=== PATIENT | male | born 1935 | race Caucasian/White ===

== ENCOUNTER 2021-08-14 16:06 | Inpatient (IN) ==
[2021-08-14] MEDS: Furosemide 20 MG TABLET PO SCH (21:30)
[2021-08-14] MEDS: *HR* Amiodarone 200 MG TABLET PO SCH (21:30)
[2021-08-15 05:15] LABS: Basophils % 0.3 %; Eosinophils # 0.1 K/mcL (0.0-0.6); Eosinophils % 0.7 %; Hematocrit 31.4 % (37.5-50.1); Hemoglobin 9.3 g/dL (12.9-16.9); Immature Granulocytes % 2.9 % (0-4); Lymphocytes # 0.5 K/mcL (0.6-4.6); Lymphocytes % 3.9 %; Mean Corpuscular HGB Conc 29.6 g/dL (31.6-35.5); Mean Corpuscular Hemoglobin 24.2 pg (28.0-33.3); Mean Corpuscular Volume 81.8 fL (83.0-100.0); Mean Platelet Volume 10.5 fL (9.4-12.4); Monocytes # 1.6 K/mcL (0.0-1.3); Monocytes % 11.4 %; Platelet Count 219 K/mcL (140-400); Red Blood Count 3.84 M/mcL (4.19-5.50); Red Cell Distribution Width 20.7 % (11.5-14.5); Segmented Neutrophils % 80.8 %; White Blood Count 13.6 K/mcL (4.3-11.1)
[2021-08-15 05:26] LABS: Calcium 8.4 mg/dL (8.6-10.3); Potassium 3.5 mEq/L (3.5-5.1)
[2021-08-15] MEDS: *HR* Enoxaparin 40 MG/0.4 ML SYRINGE SQ SCH (05:33)
[2021-08-15] MEDS: Furosemide 20 MG TABLET PO SCH ×2 (09:21→16:59)
[2021-08-15] MEDS: *HR* Amiodarone 200 MG TABLET PO SCH ×2 (09:21→21:08)
[2021-08-15] MEDS: Aspirin Enteric Coated 81 MG Tablet PO SCH (09:21)
[2021-08-15] MEDS: Multivit/Ca/Min/Fe/FA 1 TAB TABLET PO SCH (09:22)
[2021-08-16] MEDS: *HR* Enoxaparin 40 MG/0.4 ML SYRINGE SQ SCH (05:55)
[2021-08-16] MEDS: *HR* Amiodarone 200 MG TABLET PO SCH ×2 (09:05→20:22)
[2021-08-16] MEDS: Aspirin Enteric Coated 81 MG Tablet PO SCH (09:05)
[2021-08-16] MEDS: Multivit/Ca/Min/Fe/FA 1 TAB TABLET PO SCH (09:05)
[2021-08-16] MEDS: Furosemide 20 MG TABLET PO SCH ×2 (09:05→16:19)
[2021-08-16] MEDS: Acetaminophen 325 MG TABLET PO PRN ×2 (09:05→16:19)
[2021-08-17] MEDS: *HR* Enoxaparin 40 MG/0.4 ML SYRINGE SQ SCH (04:20)
[2021-08-17 07:17] LABS: Hematocrit 31.3 % (37.5-50.1); Hemoglobin 9.4 g/dL (12.9-16.9); Mean Corpuscular Hemoglobin 24.5 pg (28.0-33.3); Mean Corpuscular Volume 81.7 fL (83.0-100.0); Mean Platelet Volume 10.9 fL (9.4-12.4); Platelet Count 237 K/mcL (140-400); Red Blood Count 3.83 M/mcL (4.19-5.50); White Blood Count 19.2 K/mcL (4.3-11.1)
[2021-08-17 07:55] LABS: Albumin 2.6 g/dL (3.5-5.7); Bilirubin,Total 0.9 mg/dL (0.3-1.0); Calcium 8.4 mg/dL (8.6-10.3); Globulin 2.7 g/dL (2.4-3.5); Magnesium 1.9 mg/dL (1.6-2.6); Potassium 3.2 mEq/L (3.5-5.1); Total Protein 5.3 g/dL (6.4-8.9)
[2021-08-17] MEDS: Aspirin Enteric Coated 81 MG Tablet PO SCH (10:15)
[2021-08-17] MEDS: Multivit/Ca/Min/Fe/FA 1 TAB TABLET PO SCH (10:15)
[2021-08-17] MEDS: Furosemide 20 MG TABLET PO SCH (10:16)
[2021-08-17] MEDS: *HR* Amiodarone 200 MG TABLET PO SCH ×2 (10:16→19:46)
[2021-08-17] MEDS: 0.9 % Sodium Chloride 1,000 ML IVC SCH (13:12)
[2021-08-17 15:13] LABS: Bilirubin,Urine Negative (Negative); Blood,Urine Small (Negative); Clarity,Urine Clear (Clear); Color,Urine Yellow (Yellow); Glucose,Urine (UA) Normal (Normal); Ketones,Urine Negative (Negative); Leukocyte Esterase,Urine Negative (Negative); Nitrite,Urine Negative (Negative); PH,Urine 6.5 pH Units (5.0-8.0); Protein,Urine Negative (Neg-Trace); Urobilinogen,Urine Normal (Normal)
[2021-08-17 15:26] LABS: Bacteria,Urine Few per hpf (None-Few); RBC,Urine 0-3 per hpf (0-3); Squamous Epithelial Cell,Urine Few per hpf (None-Few); WBC,Urine 0-3 per hpf (0-3)
[2021-08-17] MEDS: Piperacillin/Tazobactam 3.375 GM in 0.9 % Sodium Chloride Mini Bag 100 ML IVPB SCH ×2 (16:29→23:16)
[2021-08-18] MEDS: *HR* Enoxaparin 40 MG/0.4 ML SYRINGE SQ SCH (04:06)
[2021-08-18 05:23] LABS: Basophils % 0.2 %; Eosinophils # 0.2 K/mcL (0.0-0.6); Eosinophils % 1.1 %; Hematocrit 29.9 % (37.5-50.1); Hemoglobin 9.2 g/dL (12.9-16.9); Immature Granulocytes % 1.7 % (0-4); Lymphocytes # 0.5 K/mcL (0.6-4.6); Mean Corpuscular HGB Conc 30.8 g/dL (31.6-35.5); Mean Corpuscular Volume 81.3 fL (83.0-100.0); Mean Platelet Volume 10.5 fL (9.4-12.4); Monocytes # 1.9 K/mcL (0.0-1.3); Monocytes % 11.1 %; Platelet Count 241 K/mcL (140-400); Red Blood Count 3.68 M/mcL (4.19-5.50); Red Cell Distribution Width 21.2 % (11.5-14.5); Segmented Neutrophils % 82.9 %; White Blood Count 16.8 K/mcL (4.3-11.1)
[2021-08-18 05:25] LABS: Neutrophils # 13.9 K/mcL (1.6-8.9)
[2021-08-18 05:43] LABS: Calcium 8.1 mg/dL (8.6-10.3); Potassium 3.1 mEq/L (3.5-5.1)
[2021-08-18] MEDS: Multivit/Ca/Min/Fe/FA 1 TAB TABLET PO SCH (10:06)
[2021-08-18] MEDS: Aspirin Enteric Coated 81 MG Tablet PO SCH (10:06)
[2021-08-18] MEDS: *HR* Amiodarone 200 MG TABLET PO SCH ×2 (10:06→22:44)
[2021-08-18] MEDS: Piperacillin/Tazobactam 3.375 GM in 0.9 % Sodium Chloride Mini Bag 100 ML IVPB SCH ×3 (10:07→22:45)
[2021-08-18] MEDS: 0.9 % Sodium Chloride 1,000 ML IVC SCH (10:07)
[2021-08-19] MEDS: 0.9 % Sodium Chloride 1,000 ML IVC SCH ×2 (01:49→11:16)
[2021-08-19 05:01] LABS: Basophils # 0.1 K/mcL (0.0-0.2); Basophils % 0.4 %; Eosinophils # 0.3 K/mcL (0.0-0.6); Eosinophils % 2.3 %; Hematocrit 28.2 % (37.5-50.1); Hemoglobin 8.4 g/dL (12.9-16.9); Immature Granulocytes % 1.6 % (0-4); Lymphocytes # 0.6 K/mcL (0.6-4.6); Lymphocytes % 4.5 %; Mean Corpuscular HGB Conc 29.8 g/dL (31.6-35.5); Mean Corpuscular Hemoglobin 24.3 pg (28.0-33.3); Mean Corpuscular Volume 81.5 fL (83.0-100.0); Mean Platelet Volume 11.1 fL (9.4-12.4); Monocytes # 1.7 K/mcL (0.0-1.3); Monocytes % 12.8 %; Platelet Count 252 K/mcL (140-400); Red Blood Count 3.46 M/mcL (4.19-5.50); Red Cell Distribution Width 21.5 % (11.5-14.5); Segmented Neutrophils % 78.4 %; White Blood Count 13.2 K/mcL (4.3-11.1)
[2021-08-19 05:07] LABS: Neutrophils # 10.4 K/mcL (1.6-8.9)
[2021-08-19 05:16] LABS: Albumin 2.3 g/dL (3.5-5.7); Albumin/Globulin Ratio 0.9 (1.1-2.2); Bilirubin,Total 0.8 mg/dL (0.3-1.0); Calcium 7.7 mg/dL (8.6-10.3); Globulin 2.5 g/dL (2.4-3.5); Potassium 2.8 mEq/L (3.5-5.1); Total Protein 4.8 g/dL (6.4-8.9)
[2021-08-19] MEDS: *HR* Enoxaparin 40 MG/0.4 ML SYRINGE SQ SCH (05:19)
[2021-08-19] MEDS: Piperacillin/Tazobactam 3.375 GM in 0.9 % Sodium Chloride Mini Bag 100 ML IVPB SCH ×2 (09:14→16:13)
[2021-08-19] MEDS: Multivit/Ca/Min/Fe/FA 1 TAB TABLET PO SCH (09:15)
[2021-08-19] MEDS: Aspirin Enteric Coated 81 MG Tablet PO SCH (09:16)
[2021-08-19] MEDS: *HR* Amiodarone 200 MG TABLET PO SCH ×2 (09:16→19:49)
[2021-08-20] MEDS: Piperacillin/Tazobactam 3.375 GM in 0.9 % Sodium Chloride Mini Bag 100 ML IVPB SCH ×4 (00:05→23:55)
[2021-08-20] MEDS: *HR* Enoxaparin 40 MG/0.4 ML SYRINGE SQ SCH (04:16)
[2021-08-20] MEDS: Multivit/Ca/Min/Fe/FA 1 TAB TABLET PO SCH (08:22)
[2021-08-20] MEDS: Aspirin Enteric Coated 81 MG Tablet PO SCH (08:22)
[2021-08-20] MEDS: *HR* Amiodarone 200 MG TABLET PO SCH ×2 (08:22→20:33)
[2021-08-20 08:34] LABS: Alanine Aminotransferase 27 Units/L (7-52); Albumin 2.6 g/dL (3.5-5.7); Albumin/Globulin Ratio 0.9 (1.1-2.2); Alkaline Phosphatase 202 Units/L (34-104); Aspartate Amino Transferase 33 Units/L (13-39); BUN/Creatinine Ratio 26 (6-26); Bilirubin,Total 0.8 mg/dL (0.3-1.0); Blood Urea Nitrogen 34 mg/dL (8-23); Calcium 8.3 mg/dL (8.6-10.3); Carbon Dioxide 33 mEq/L (23-29); Chloride 104 mEq/L (98-107); Globulin 2.8 g/dL (2.4-3.5); Glucose 87 mg/dL (70-105); Magnesium 2.1 mg/dL (1.6-2.6); Osmolality,Calculated 303 (280-300); Potassium 3.7 mEq/L (3.5-5.1); Sodium 143 mEq/L (136-145); Total Protein 5.4 g/dL (6.4-8.9); eGFR For African Americans > 60 (> 60); eGFR For Non-African Americans 51 (> 60)
[2021-08-20 08:35] LABS: Basophils # 0.1 K/mcL (0.0-0.2); Basophils % 0.4 %; Eosinophils # 0.2 K/mcL (0.0-0.6); Eosinophils % 1.6 %; Hematocrit 30.6 % (37.5-50.1); Hemoglobin 9.1 g/dL (12.9-16.9); Immature Granulocytes % 1.8 % (0-4); Lymphocytes # 0.6 K/mcL (0.6-4.6); Lymphocytes % 5.4 %; Mean Corpuscular HGB Conc 29.7 g/dL (31.6-35.5); Mean Corpuscular Hemoglobin 24.7 pg (28.0-33.3); Mean Corpuscular Volume 83.2 fL (83.0-100.0); Mean Platelet Volume 11.1 fL (9.4-12.4); Monocytes # 1.7 K/mcL (0.0-1.3); Monocytes % 14.6 %; Neutrophils # 8.8 K/mcL (1.6-8.9); Platelet Count 280 K/mcL (140-400); Red Blood Count 3.68 M/mcL (4.19-5.50); Red Cell Distribution Width 22.1 % (11.5-14.5); Segmented Neutrophils % 76.2 %; White Blood Count 11.6 K/mcL (4.3-11.1)
[2021-08-20] MEDS: Megestrol Acetate 400 MG/10 ML UDC PO SCH (15:37)
[2021-08-20] MEDS ORDERED: *HR* Heparin 5,000 UNIT/ML VIAL SQ SCH (18:00)
[2021-08-20] MEDS: Albuterol 2.5 MG/3 ML NEBULIZER IH PRN (20:54)
[2021-08-21] MEDS: Albuterol 2.5 MG/3 ML NEBULIZER IH PRN (05:04)
[2021-08-21] MEDS: *HR* Heparin 5,000 UNIT/ML VIAL SQ SCH ×2 (05:04→16:52)
[2021-08-21 07:23] LABS: Basophils % 0.3 %; Eosinophils # 0.2 K/mcL (0.0-0.6); Eosinophils % 1.3 %; Hemoglobin 8.9 g/dL (12.9-16.9); Immature Granulocytes % 1.8 % (0-4); Lymphocytes # 0.7 K/mcL (0.6-4.6); Lymphocytes % 5.6 %; Mean Corpuscular HGB Conc 29.7 g/dL (31.6-35.5); Mean Corpuscular Hemoglobin 24.9 pg (28.0-33.3); Mean Platelet Volume 10.7 fL (9.4-12.4); Monocytes # 1.8 K/mcL (0.0-1.3); Monocytes % 14.7 %; Platelet Count 299 K/mcL (140-400); Red Blood Count 3.57 M/mcL (4.19-5.50); Red Cell Distribution Width 22.2 % (11.5-14.5); Segmented Neutrophils % 76.3 %
[2021-08-21 07:24] LABS: Neutrophils # 9.2 K/mcL (1.6-8.9)
[2021-08-21 07:33] LABS: BUN/Creatinine Ratio 27 (6-26); Blood Urea Nitrogen 33 mg/dL (8-23); Calcium 8.2 mg/dL (8.6-10.3); Carbon Dioxide 31 mEq/L (23-29); Chloride 105 mEq/L (98-107); Glucose 94 mg/dL (70-105); Osmolality,Calculated 301 (280-300); Potassium 4.1 mEq/L (3.5-5.1); Sodium 142 mEq/L (136-145); eGFR For African Americans > 60 (> 60); eGFR For Non-African Americans 56 (> 60)
[2021-08-21] MEDS: Aspirin Enteric Coated 81 MG Tablet PO SCH (08:47)
[2021-08-21] MEDS: *HR* Amiodarone 200 MG TABLET PO SCH ×2 (08:47→20:14)
[2021-08-21] MEDS: Multivit/Ca/Min/Fe/FA 1 TAB TABLET PO SCH (08:47)
[2021-08-21] MEDS: Piperacillin/Tazobactam 3.375 GM in 0.9 % Sodium Chloride Mini Bag 100 ML IVPB SCH (08:47)
[2021-08-21] MEDS: Megestrol Acetate 400 MG/10 ML UDC PO SCH (08:47)
[2021-08-22] MEDS: *HR* Heparin 5,000 UNIT/ML VIAL SQ SCH ×2 (05:04→19:47)
[2021-08-22 05:49] LABS: BUN/Creatinine Ratio 20 (6-26); Blood Urea Nitrogen 13 mg/dL (8-23); Carbon Dioxide 32 mEq/L (23-29); Chloride 103 mEq/L (98-107); Glucose 79 mg/dL (70-105); Osmolality,Calculated 289 (280-300); Potassium 4.3 mEq/L (3.5-5.1); Sodium 140 mEq/L (136-145); eGFR For African Americans > 60 (> 60); eGFR For Non-African Americans > 60 (> 60)
[2021-08-22 08:04] LABS: Basophils # 0.1 K/mcL (0.0-0.2); Basophils % 0.7 %; Eosinophils # 0.3 K/mcL (0.0-0.6); Eosinophils % 2.3 %; Hematocrit 29.4 % (37.5-50.1); Hemoglobin 8.7 g/dL (12.9-16.9); Lymphocytes # 0.6 K/mcL (0.6-4.6); Mean Corpuscular HGB Conc 29.6 g/dL (31.6-35.5); Mean Corpuscular Hemoglobin 24.7 pg (28.0-33.3); Mean Corpuscular Volume 83.5 fL (83.0-100.0); Mean Platelet Volume 10.8 fL (9.4-12.4); Monocytes # 1.5 K/mcL (0.0-1.3); Monocytes % 14.4 %; Platelet Count 291 K/mcL (140-400); Red Blood Count 3.52 M/mcL (4.19-5.50); Red Cell Distribution Width 22.5 % (11.5-14.5); Segmented Neutrophils % 74.6 %; White Blood Count 10.7 K/mcL (4.3-11.1)
[2021-08-22] MEDS: Aspirin Enteric Coated 81 MG Tablet PO SCH (09:09)
[2021-08-22] MEDS: *HR* Amiodarone 200 MG TABLET PO SCH ×2 (09:10→19:47)
[2021-08-22] MEDS: Multivit/Ca/Min/Fe/FA 1 TAB TABLET PO SCH (09:10)
[2021-08-22] MEDS: Megestrol Acetate 400 MG/10 ML UDC PO SCH (09:10)
[2021-08-22] MEDS: Mirtazapine 15 MG TABLET PO SCH (20:04)
[2021-08-23] MEDS: *HR* Heparin 5,000 UNIT/ML VIAL SQ SCH (04:12)
[2021-08-23 04:28] LABS: Basophils # 0.1 K/mcL (0.0-0.2); Basophils % 0.5 %; Eosinophils # 0.3 K/mcL (0.0-0.6); Eosinophils % 2.7 %; Hematocrit 30.1 % (37.5-50.1); Hemoglobin 8.8 g/dL (12.9-16.9); Lymphocytes # 0.7 K/mcL (0.6-4.6); Lymphocytes % 5.9 %; Mean Corpuscular HGB Conc 29.2 g/dL (31.6-35.5); Mean Corpuscular Hemoglobin 24.6 pg (28.0-33.3); Mean Corpuscular Volume 84.1 fL (83.0-100.0); Mean Platelet Volume 10.3 fL (9.4-12.4); Monocytes # 1.5 K/mcL (0.0-1.3); Monocytes % 12.5 %; Neutrophils # 8.9 K/mcL (1.6-8.9); Platelet Count 334 K/mcL (140-400); Red Blood Count 3.58 M/mcL (4.19-5.50); Red Cell Distribution Width 22.9 % (11.5-14.5); Segmented Neutrophils % 76.4 %; White Blood Count 11.7 K/mcL (4.3-11.1)
[2021-08-23 04:44] LABS: BUN/Creatinine Ratio 26 (6-26); Blood Urea Nitrogen 28 mg/dL (8-23); Calcium 8.4 mg/dL (8.6-10.3); Carbon Dioxide 29 mEq/L (23-29); Chloride 107 mEq/L (98-107); Glucose 85 mg/dL (70-105); Magnesium 1.9 mg/dL (1.6-2.6); Osmolality,Calculated 297 (280-300); Potassium 4.7 mEq/L (3.5-5.1); Sodium 141 mEq/L (136-145); eGFR For African Americans > 60 (> 60); eGFR For Non-African Americans > 60 (> 60)
[2021-08-23] MEDS: *HR* Amiodarone 200 MG TABLET PO SCH ×2 (07:52→21:22)
[2021-08-23] MEDS: Aspirin Enteric Coated 81 MG Tablet PO SCH (07:52)
[2021-08-23] MEDS: Multivit/Ca/Min/Fe/FA 1 TAB TABLET PO SCH (07:52)
[2021-08-23] MEDS: Albuterol 2.5 MG/3 ML NEBULIZER IH PRN (08:00)
[2021-08-23 13:15] LABS: Hematocrit 30.5 % (37.5-50.1)
[2021-08-23] MEDS: Piperacillin/Tazobactam 3.375 GM in 0.9 % Sodium Chloride Mini Bag 100 ML IVPB SCH (15:11)
[2021-08-23] MEDS: Mirtazapine 15 MG TABLET PO SCH (21:22)
[2021-08-24] MEDS: Piperacillin/Tazobactam 3.375 GM in 0.9 % Sodium Chloride Mini Bag 100 ML IVPB SCH ×2 (00:08→10:56)
[2021-08-24 10:29] LABS: Basophils # 0.1 K/mcL (0.0-0.2); Basophils % 0.8 %; Eosinophils # 0.1 K/mcL (0.0-0.6); Eosinophils % 1.4 %; Hematocrit 32.8 % (37.5-50.1); Hemoglobin 9.4 g/dL (12.9-16.9); Immature Granulocytes % 1.5 % (0-4); Lymphocytes # 0.5 K/mcL (0.6-4.6); Mean Corpuscular HGB Conc 28.7 g/dL (31.6-35.5); Mean Corpuscular Hemoglobin 24.6 pg (28.0-33.3); Mean Corpuscular Volume 85.9 fL (83.0-100.0); Mean Platelet Volume 10.6 fL (9.4-12.4); Monocytes # 0.9 K/mcL (0.0-1.3); Monocytes % 10.7 %; Neutrophils # 6.8 K/mcL (1.6-8.9); Platelet Count 396 K/mcL (140-400); Red Blood Count 3.82 M/mcL (4.19-5.50); Segmented Neutrophils % 79.6 %; White Blood Count 8.5 K/mcL (4.3-11.1)
[2021-08-24 10:46] LABS: BUN/Creatinine Ratio 25 (6-26); Blood Urea Nitrogen 29 mg/dL (8-23); Calcium 8.5 mg/dL (8.6-10.3); Carbon Dioxide 25 mEq/L (23-29); Chloride 108 mEq/L (98-107); Glucose 89 mg/dL (70-105); Osmolality,Calculated 301 (280-300); Potassium 4.5 mEq/L (3.5-5.1); Sodium 143 mEq/L (136-145); eGFR For African Americans > 60 (> 60); eGFR For Non-African Americans 58 (> 60)
[2021-08-24] MEDS: *HR* Amiodarone 200 MG TABLET PO SCH ×2 (10:52→22:14)
[2021-08-24 10:56] LABS: Microcytosis Present (Not Present)
[2021-08-24] MEDS: Multivit/Ca/Min/Fe/FA 1 TAB TABLET PO SCH (10:56)
[2021-08-24] MEDS: Aspirin Enteric Coated 81 MG Tablet PO SCH (10:56)
[2021-08-24 10:57] LABS: Platelet Estimate Normal (Normal)
[2021-08-24] MEDS ORDERED: E-Z-PAQUE (BARIUM SULF) SUSP 1 BOTTLE PO ONE (12:12)
[2021-08-24] MEDS ORDERED: E-Z-HD (BARIUM SULF) SUSPENSION PO ONE (12:12)
[2021-08-24] MEDS: Mirtazapine 15 MG TABLET PO SCH (22:17)
[2021-08-25 05:00] LABS: Basophils # 0.1 K/mcL (0.0-0.2); Basophils % 0.7 %; Eosinophils # 0.5 K/mcL (0.0-0.6); Eosinophils % 5.2 %; Hematocrit 29.5 % (37.5-50.1); Hemoglobin 8.6 g/dL (12.9-16.9); Immature Granulocytes % 1.5 % (0-4); Lymphocytes # 0.6 K/mcL (0.6-4.6); Mean Corpuscular HGB Conc 29.2 g/dL (31.6-35.5); Mean Corpuscular Volume 85.8 fL (83.0-100.0); Mean Platelet Volume 10.4 fL (9.4-12.4); Monocytes # 1.2 K/mcL (0.0-1.3); Monocytes % 13.4 %; Neutrophils # 6.4 K/mcL (1.6-8.9); Platelet Count 367 K/mcL (140-400); Red Blood Count 3.44 M/mcL (4.19-5.50); Segmented Neutrophils % 72.2 %; White Blood Count 8.9 K/mcL (4.3-11.1)
[2021-08-25 05:07] LABS: Anisocytosis 1+ (Not Present); Platelet Estimate Normal (Normal)
[2021-08-25 05:13] LABS: BUN/Creatinine Ratio 22 (6-26); Blood Urea Nitrogen 25 mg/dL (8-23); Carbon Dioxide 28 mEq/L (23-29); Chloride 109 mEq/L (98-107); Glucose 93 mg/dL (70-105); Osmolality,Calculated 298 (280-300); Potassium 4.1 mEq/L (3.5-5.1); Sodium 142 mEq/L (136-145); eGFR For African Americans > 60 (> 60); eGFR For Non-African Americans > 60 (> 60)
[2021-08-25] MEDS: Aspirin Enteric Coated 81 MG Tablet PO SCH (08:46)
[2021-08-25] MEDS: *HR* Amiodarone 200 MG TABLET PO SCH ×2 (08:47→20:38)
[2021-08-25] MEDS: Multivit/Ca/Min/Fe/FA 1 TAB TABLET PO SCH (08:47)
[2021-08-25] MEDS: Mirtazapine 15 MG TABLET PO SCH (20:38)
[2021-08-26 04:48] LABS: Basophils # 0.1 K/mcL (0.0-0.2); Basophils % 0.6 %; Eosinophils # 0.4 K/mcL (0.0-0.6); Eosinophils % 3.2 %; Hematocrit 31.9 % (37.5-50.1); Hemoglobin 9.3 g/dL (12.9-16.9); Immature Granulocytes % 1.1 % (0-4); Lymphocytes # 0.7 K/mcL (0.6-4.6); Lymphocytes % 5.7 %; Mean Corpuscular HGB Conc 29.2 g/dL (31.6-35.5); Mean Corpuscular Volume 85.8 fL (83.0-100.0); Mean Platelet Volume 10.3 fL (9.4-12.4); Monocytes # 1.8 K/mcL (0.0-1.3); Monocytes % 14.8 %; Neutrophils # 9.1 K/mcL (1.6-8.9); Platelet Count 385 K/mcL (140-400); Red Blood Count 3.72 M/mcL (4.19-5.50); Red Cell Distribution Width 24.3 % (11.5-14.5); Segmented Neutrophils % 74.6 %; White Blood Count 12.2 K/mcL (4.3-11.1)
[2021-08-26 04:50] LABS: Anisocytosis 1+ (Not Present); Platelet Estimate Normal (Normal)
[2021-08-26 05:04] LABS: BUN/Creatinine Ratio 21 (6-26); Blood Urea Nitrogen 25 mg/dL (8-23); Calcium 8.1 mg/dL (8.6-10.3); Carbon Dioxide 26 mEq/L (23-29); Chloride 112 mEq/L (98-107); Glucose 98 mg/dL (70-105); Osmolality,Calculated 300 (280-300); Potassium 4.5 mEq/L (3.5-5.1); Sodium 143 mEq/L (136-145); eGFR For African Americans > 60 (> 60); eGFR For Non-African Americans 57 (> 60)
[2021-08-26] MEDS: *HR* Amiodarone 200 MG TABLET PO SCH ×2 (09:29→19:36)
[2021-08-26] MEDS: Multivit/Ca/Min/Fe/FA 1 TAB TABLET PO SCH (09:29)
[2021-08-26] MEDS: Aspirin Enteric Coated 81 MG Tablet PO SCH (09:29)
[2021-08-26] MEDS ORDERED: Furosemide 20 MG TABLET PO SCH (13:42)
[2021-08-26] MEDS: Mirtazapine 15 MG TABLET PO SCH (19:36)
[2021-08-27 04:51] LABS: Basophils # 0.1 K/mcL (0.0-0.2); Basophils % 0.8 %; Eosinophils # 0.6 K/mcL (0.0-0.6); Eosinophils % 6.2 %; Hematocrit 30.3 % (37.5-50.1); Hemoglobin 8.8 g/dL (12.9-16.9); Immature Granulocytes % 1.5 % (0-4); Lymphocytes # 0.9 K/mcL (0.6-4.6); Lymphocytes % 9.6 %; Mean Corpuscular Hemoglobin 25.1 pg (28.0-33.3); Mean Corpuscular Volume 86.3 fL (83.0-100.0); Monocytes # 1.4 K/mcL (0.0-1.3); Monocytes % 15.1 %; Neutrophils # 6.2 K/mcL (1.6-8.9); Platelet Count 390 K/mcL (140-400); Red Blood Count 3.51 M/mcL (4.19-5.50); Red Cell Distribution Width 24.5 % (11.5-14.5); Segmented Neutrophils % 66.8 %; White Blood Count 9.3 K/mcL (4.3-11.1)
[2021-08-27 04:55] LABS: Anisocytosis 1+ (Not Present); Platelet Estimate Normal (Normal)
[2021-08-27 05:07] LABS: Alanine Aminotransferase 36 Units/L (7-52); Albumin 2.4 g/dL (3.5-5.7); Alkaline Phosphatase 267 Units/L (34-104); Aspartate Amino Transferase 36 Units/L (13-39); BUN/Creatinine Ratio 19 (6-26); Bilirubin,Total 0.7 mg/dL (0.3-1.0); Blood Urea Nitrogen 23 mg/dL (8-23); Calcium 7.9 mg/dL (8.6-10.3); Carbon Dioxide 27 mEq/L (23-29); Chloride 112 mEq/L (98-107); Globulin 2.4 g/dL (2.4-3.5); Glucose 91 mg/dL (70-105); Magnesium 2.1 mg/dL (1.6-2.6); Osmolality,Calculated 301 (280-300); Potassium 4.4 mEq/L (3.5-5.1); Sodium 144 mEq/L (136-145); Total Protein 4.8 g/dL (6.4-8.9); eGFR For African Americans > 60 (> 60); eGFR For Non-African Americans 58 (> 60)
[2021-08-27] MEDS: Aspirin Enteric Coated 81 MG Tablet PO SCH (08:43)
[2021-08-27] MEDS: Multivit/Ca/Min/Fe/FA 1 TAB TABLET PO SCH (08:43)
[2021-08-27] MEDS: *HR* Amiodarone 200 MG TABLET PO SCH ×2 (08:44→19:47)
[2021-08-27] MEDS: Mirtazapine 15 MG TABLET PO SCH (19:47)
[2021-08-28] MEDS: Aspirin Enteric Coated 81 MG Tablet PO SCH (08:46)
[2021-08-28] MEDS: *HR* Amiodarone 200 MG TABLET PO SCH ×2 (08:47→22:17)
[2021-08-28] MEDS: Multivit/Ca/Min/Fe/FA 1 TAB TABLET PO SCH (08:47)
[2021-08-28] MEDS: Mirtazapine 15 MG TABLET PO SCH (22:19)
[2021-08-29 05:30] LABS: Hematocrit 29.4 % (37.5-50.1); Hemoglobin 8.7 g/dL (12.9-16.9); Mean Corpuscular HGB Conc 29.6 g/dL (31.6-35.5); Mean Corpuscular Hemoglobin 25.1 pg (28.0-33.3); Platelet Count 376 K/mcL (140-400); Red Blood Count 3.46 M/mcL (4.19-5.50); Red Cell Distribution Width 24.3 % (11.5-14.5); White Blood Count 9.9 K/mcL (4.3-11.1)
[2021-08-29 05:48] LABS: BUN/Creatinine Ratio 21 (6-26); Blood Urea Nitrogen 24 mg/dL (8-23); Calcium 7.8 mg/dL (8.6-10.3); Carbon Dioxide 24 mEq/L (23-29); Chloride 112 mEq/L (98-107); Glucose 95 mg/dL (70-105); Magnesium 2.1 mg/dL (1.6-2.6); Osmolality,Calculated 296 (280-300); Potassium 4.2 mEq/L (3.5-5.1); Sodium 141 mEq/L (136-145); eGFR For African Americans > 60 (> 60); eGFR For Non-African Americans > 60 (> 60)
[2021-08-29] MEDS: *HR* Amiodarone 200 MG TABLET PO SCH ×2 (08:26→21:52)
[2021-08-29] MEDS: Multivit/Ca/Min/Fe/FA 1 TAB TABLET PO SCH (08:26)
[2021-08-29] MEDS: Aspirin Enteric Coated 81 MG Tablet PO SCH (08:26)
[2021-08-29] MEDS: Acetaminophen 325 MG TABLET PO PRN (12:46)
[2021-08-29] MEDS: Mirtazapine 15 MG TABLET PO SCH (21:52)
[2021-08-30] MEDS: Acetaminophen 325 MG TABLET PO PRN (08:27)
[2021-08-30] MEDS: Multivit/Ca/Min/Fe/FA 1 TAB TABLET PO SCH (08:27)
[2021-08-30] MEDS: Aspirin Enteric Coated 81 MG Tablet PO SCH (08:27)
[2021-08-30] MEDS: *HR* Amiodarone 200 MG TABLET PO SCH ×2 (08:27→20:41)
[2021-08-30] MEDS ORDERED: Vancomycin 1,250 MG/262.5 ML IV.SOLN IVPB SCH (12:00)
[2021-08-30] MEDS ORDERED: Iopamidol - 370 500 ML MLS IVP ONE (12:08)
[2021-08-30 13:39] LABS: BUN/Creatinine Ratio 23 (6-26); Blood Urea Nitrogen 28 mg/dL (8-23); Calcium 7.9 mg/dL (8.6-10.3); Carbon Dioxide 21 mEq/L (23-29); Chloride 111 mEq/L (98-107); Glucose 94 mg/dL (70-105); Osmolality,Calculated 295 (280-300); Potassium 4.9 mEq/L (3.5-5.1); Sodium 140 mEq/L (136-145); eGFR For African Americans > 60 (> 60); eGFR For Non-African Americans 55 (> 60)
[2021-08-30] MEDS: Piperacillin/Tazobactam 3.375 GM in 0.9 % Sodium Chloride Mini Bag 100 ML IVPB SCH (17:00)
[2021-08-30] MEDS: Nystatin Cream 15 GM TUBE TP SCH ×2 (17:32→20:41)
[2021-08-30] MEDS: Nystatin POWDER 30 GM BOTTLE TP SCH ×2 (17:32→20:41)
[2021-08-30] MEDS ORDERED: Vancomycin 1,500 MG/265 ML IV.SOLN IVPB SCH (18:00)
[2021-08-30] MEDS: Mirtazapine 15 MG TABLET PO SCH (20:41)
[2021-08-31 04:57] LABS: Bilirubin,Urine Negative (Negative); Blood,Urine Negative (Negative); Color,Urine Yellow (Yellow); Glucose,Urine (UA) Normal (Normal); Ketones,Urine Negative (Negative); Leukocyte Esterase,Urine Small (Negative); Nitrite,Urine Negative (Negative); PH,Urine 5.5 pH Units (5.0-8.0); Protein,Urine Negative (Neg-Trace); Specific Gravity,Urine 1.015 (1.010-1.025); Urobilinogen,Urine Normal (Normal)
[2021-08-31 05:11] LABS: Clarity,Urine Slightly Cloudy (Clear)
[2021-08-31 05:13] LABS: Bacteria,Urine Few per hpf (None-Few); RBC,Urine 0-3 per hpf (0-3); Squamous Epithelial Cell,Urine Few per hpf (None-Few)
[2021-08-31] MEDS: *HR* Amiodarone 200 MG TABLET PO SCH ×2 (08:41→20:25)
[2021-08-31] MEDS: Piperacillin/Tazobactam 3.375 GM in 0.9 % Sodium Chloride Mini Bag 100 ML IVPB SCH ×3 (08:41→16:55)
[2021-08-31] MEDS: Aspirin Enteric Coated 81 MG Tablet PO SCH (08:41)
[2021-08-31] MEDS: Multivit/Ca/Min/Fe/FA 1 TAB TABLET PO SCH (08:41)
[2021-08-31] MEDS: Nystatin POWDER 30 GM BOTTLE TP SCH ×2 (08:42→20:27)
[2021-08-31] MEDS: Nystatin Cream 15 GM TUBE TP SCH ×2 (08:42→20:27)
[2021-08-31] MEDS ORDERED: Vancomycin 1,250 MG/262.5 ML IV.SOLN IVPB SCH (18:00)
[2021-08-31] MEDS: Mirtazapine 15 MG TABLET PO SCH (20:26)
[2021-09-01] MEDS: Piperacillin/Tazobactam 3.375 GM in 0.9 % Sodium Chloride Mini Bag 100 ML IVPB SCH ×2 (00:05→08:24)
[2021-09-01 06:18] LABS: eGFR For African Americans > 60 (> 60); eGFR For Non-African Americans > 60 (> 60)
[2021-09-01] MEDS: *HR* Amiodarone 200 MG TABLET PO SCH ×2 (08:22→21:05)
[2021-09-01] MEDS: Aspirin Enteric Coated 81 MG Tablet PO SCH (08:23)
[2021-09-01] MEDS: Multivit/Ca/Min/Fe/FA 1 TAB TABLET PO SCH (08:23)
[2021-09-01] MEDS: Nystatin Cream 15 GM TUBE TP SCH ×2 (08:25→21:06)
[2021-09-01] MEDS: Nystatin POWDER 30 GM BOTTLE TP SCH ×2 (08:25→21:06)
[2021-09-01] MEDS: Doxycycline 100 MG in 0.9 % Sodium Chloride Mini Bag 100 ML IVPB SCH ×2 (11:18→17:25)
[2021-09-01] MEDS: Mirtazapine 15 MG TABLET PO SCH (21:05)
[2021-09-02 05:15] LABS: Hematocrit 29.6 % (37.5-50.1); Hemoglobin 8.8 g/dL (12.9-16.9); Mean Corpuscular HGB Conc 29.7 g/dL (31.6-35.5); Mean Corpuscular Hemoglobin 25.5 pg (28.0-33.3); Mean Corpuscular Volume 85.8 fL (83.0-100.0); Mean Platelet Volume 9.8 fL (9.4-12.4); Platelet Count 379 K/mcL (140-400); Red Blood Count 3.45 M/mcL (4.19-5.50); Red Cell Distribution Width 24.9 % (11.5-14.5); White Blood Count 8.5 K/mcL (4.3-11.1)
[2021-09-02 05:28] LABS: Alanine Aminotransferase 32 Units/L (7-52); Albumin 2.3 g/dL (3.5-5.7); Albumin/Globulin Ratio 0.9 (1.1-2.2); Alkaline Phosphatase 277 Units/L (34-104); Aspartate Amino Transferase 31 Units/L (13-39); BUN/Creatinine Ratio 20 (6-26); Bilirubin,Total 0.7 mg/dL (0.3-1.0); Blood Urea Nitrogen 21 mg/dL (8-23); Calcium 7.7 mg/dL (8.6-10.3); Carbon Dioxide 24 mEq/L (23-29); Chloride 114 mEq/L (98-107); Globulin 2.7 g/dL (2.4-3.5); Glucose 87 mg/dL (70-105); Magnesium 1.9 mg/dL (1.6-2.6); Osmolality,Calculated 298 (280-300); Sodium 143 mEq/L (136-145); eGFR For African Americans > 60 (> 60); eGFR For Non-African Americans > 60 (> 60)
[2021-09-02] MEDS: Doxycycline 100 MG in 0.9 % Sodium Chloride Mini Bag 100 ML IVPB SCH ×2 (06:47→18:17)
[2021-09-02] MEDS: Nystatin POWDER 30 GM BOTTLE TP SCH ×2 (09:03→23:51)
[2021-09-02] MEDS: Nystatin Cream 15 GM TUBE TP SCH ×2 (09:03→23:51)
[2021-09-02] MEDS: *HR* Amiodarone 200 MG TABLET PO SCH ×2 (09:03→23:24)
[2021-09-02] MEDS: Aspirin Enteric Coated 81 MG Tablet PO SCH (09:03)
[2021-09-02] MEDS: Multivit/Ca/Min/Fe/FA 1 TAB TABLET PO SCH (09:03)
[2021-09-02] MEDS: Mirtazapine 15 MG TABLET PO SCH (23:23)
[2021-09-03] MEDS: Doxycycline 100 MG in 0.9 % Sodium Chloride Mini Bag 100 ML IVPB SCH ×2 (06:54→18:11)
[2021-09-03 08:44] LABS: ABG Base Excess -2 mEq/L (-2 to 3); ABG HCO3 23 mEq/L (21-27); ABG Oxygen Saturation 83 % (95-98); ABG PCO2 38 mmHg (35-45); ABG PH 7.39 pH Units (7.32-7.45); ABG PO2 48 mmHg (85-104); ABG TCO2 24 mEq/L (20-26)
[2021-09-03] MEDS: Albuterol 2.5 MG/3 ML NEBULIZER IH PRN (08:45)
[2021-09-03 08:49] LABS: Basophils # 0.1 K/mcL (0.0-0.2); Basophils % 0.8 %; Eosinophils # 0.1 K/mcL (0.0-0.6); Eosinophils % 1.3 %; Hematocrit 33.5 % (37.5-50.1); Hemoglobin 9.7 g/dL (12.9-16.9); Immature Granulocytes % 1.8 % (0-4); Lymphocytes # 0.9 K/mcL (0.6-4.6); Lymphocytes % 10.7 %; Mean Corpuscular Hemoglobin 25.4 pg (28.0-33.3); Mean Corpuscular Volume 87.7 fL (83.0-100.0); Mean Platelet Volume 9.8 fL (9.4-12.4); Monocytes # 0.9 K/mcL (0.0-1.3); Monocytes % 10.9 %; Neutrophils # 6.2 K/mcL (1.6-8.9); Platelet Count 351 K/mcL (140-400); Red Blood Count 3.82 M/mcL (4.19-5.50); Red Cell Distribution Width 24.9 % (11.5-14.5); Segmented Neutrophils % 74.5 %; White Blood Count 8.3 K/mcL (4.3-11.1)
[2021-09-03 09:07] LABS: Alanine Aminotransferase 35 Units/L (7-52); Albumin 2.3 g/dL (3.5-5.7); Albumin/Globulin Ratio 0.8 (1.1-2.2); Alkaline Phosphatase 305 Units/L (34-104); Aspartate Amino Transferase 35 Units/L (13-39); BUN/Creatinine Ratio 19 (6-26); Bilirubin,Total 0.7 mg/dL (0.3-1.0); Blood Urea Nitrogen 18 mg/dL (8-23); Calcium 7.9 mg/dL (8.6-10.3); Carbon Dioxide 23 mEq/L (23-29); Chloride 114 mEq/L (98-107); Globulin 2.9 g/dL (2.4-3.5); Glucose 83 mg/dL (70-105); Osmolality,Calculated 297 (280-300); Potassium 4.3 mEq/L (3.5-5.1); Sodium 143 mEq/L (136-145); Total Protein 5.2 g/dL (6.4-8.9); eGFR For African Americans > 60 (> 60); eGFR For Non-African Americans > 60 (> 60)
[2021-09-03] MEDS ORDERED: Ipratropium/Albuterol Neb 3 ML IH PRN (09:11)
[2021-09-03] MEDS ORDERED: Iopamidol - 370 500 ML MLS IVP ONE (09:18)
[2021-09-03] MEDS ORDERED: Ipratropium/Albuterol Neb 3 ML IH SCH (10:00)
[2021-09-03] MEDS: Multivit/Ca/Min/Fe/FA 1 TAB TABLET PO SCH (11:01)
[2021-09-03] MEDS: *HR* Amiodarone 200 MG TABLET PO SCH ×2 (11:01→20:32)
[2021-09-03] MEDS: Nystatin POWDER 30 GM BOTTLE TP SCH ×2 (11:01→20:33)
[2021-09-03] MEDS: Aspirin Enteric Coated 81 MG Tablet PO SCH (11:01)
[2021-09-03] MEDS: Nystatin Cream 15 GM TUBE TP SCH ×2 (11:01→20:33)
[2021-09-03] MEDS ORDERED: Gadolinium Contrast Agent (WT Based) IV PRN (15:03)
[2021-09-03] MEDS: *HR* Enoxaparin 100 MG/ML SYRINGE SQ SCH (18:10)
[2021-09-03] MEDS ORDERED: Furosemide 20 MG/2 ML VIAL IVP ONE (18:22)
[2021-09-03] MEDS: Mirtazapine 15 MG TABLET PO SCH (20:32)
[2021-09-03] MEDS ORDERED: *HR* Heparin 5,000 UNIT/ML VIAL SQ SCH (22:00)
[2021-09-04] MEDS: Doxycycline 100 MG in 0.9 % Sodium Chloride Mini Bag 100 ML IVPB SCH ×2 (05:25→16:12)
[2021-09-04] MEDS: *HR* Enoxaparin 100 MG/ML SYRINGE SQ SCH ×2 (05:25→16:13)
[2021-09-04 05:26] LABS: Hematocrit 31.3 % (37.5-50.1); Hemoglobin 9.4 g/dL (12.9-16.9); INR 1.3; Mean Corpuscular Hemoglobin 25.8 pg (28.0-33.3); Mean Platelet Volume 9.7 fL (9.4-12.4); Platelet Count 364 K/mcL (140-400); Prothrombin Time 14.9 Seconds (9.4-12.1); Red Blood Count 3.64 M/mcL (4.19-5.50); Red Cell Distribution Width 24.9 % (11.5-14.5); White Blood Count 8.7 K/mcL (4.3-11.1)
[2021-09-04 05:33] LABS: Alanine Aminotransferase 32 Units/L (7-52); Albumin 2.2 g/dL (3.5-5.7); Albumin/Globulin Ratio 0.8 (1.1-2.2); Alkaline Phosphatase 282 Units/L (34-104); Aspartate Amino Transferase 29 Units/L (13-39); BUN/Creatinine Ratio 17 (6-26); Bilirubin,Total 0.7 mg/dL (0.3-1.0); Blood Urea Nitrogen 18 mg/dL (8-23); Calcium 7.8 mg/dL (8.6-10.3); Carbon Dioxide 25 mEq/L (23-29); Chloride 113 mEq/L (98-107); Globulin 2.7 g/dL (2.4-3.5); Glucose 84 mg/dL (70-105); Magnesium 1.7 mg/dL (1.6-2.6); Osmolality,Calculated 297 (280-300); Sodium 143 mEq/L (136-145); Total Protein 4.9 g/dL (6.4-8.9); eGFR For African Americans > 60 (> 60); eGFR For Non-African Americans > 60 (> 60)
[2021-09-04] MEDS: *HR* Amiodarone 200 MG TABLET PO SCH ×2 (09:02→20:06)
[2021-09-04] MEDS: Aspirin Enteric Coated 81 MG Tablet PO SCH (09:02)
[2021-09-04] MEDS: Nystatin POWDER 30 GM BOTTLE TP SCH ×2 (09:02→20:07)
[2021-09-04] MEDS: Multivit/Ca/Min/Fe/FA 1 TAB TABLET PO SCH (09:02)
[2021-09-04] MEDS: Nystatin Cream 15 GM TUBE TP SCH ×2 (09:02→20:07)
[2021-09-04 19:41] VITALS: TEMP 97.8
[2021-09-04] MEDS: Mirtazapine 15 MG TABLET PO SCH (20:05)
[2021-09-04] MEDS ORDERED: Furosemide 20 MG/2 ML VIAL IVP ONE (21:55)
[2021-09-04 22:03] LABS: Basophils # 0.1 K/mcL (0.0-0.2); Basophils % 0.7 %; Eosinophils # 0.2 K/mcL (0.0-0.6); Eosinophils % 1.1 %; Hematocrit 33.3 % (37.5-50.1); Hemoglobin 9.6 g/dL (12.9-16.9); Immature Granulocytes % 1.4 % (0-4); Lymphocytes # 2.9 K/mcL (0.6-4.6); Lymphocytes % 19.7 %; Mean Corpuscular HGB Conc 28.8 g/dL (31.6-35.5); Mean Corpuscular Hemoglobin 25.1 pg (28.0-33.3); Mean Corpuscular Volume 86.9 fL (83.0-100.0); Mean Platelet Volume 9.7 fL (9.4-12.4); Monocytes # 1.7 K/mcL (0.0-1.3); Monocytes % 11.6 %; Platelet Count 421 K/mcL (140-400); Red Blood Count 3.83 M/mcL (4.19-5.50); Segmented Neutrophils % 65.5 %; White Blood Count 14.9 K/mcL (4.3-11.1)
[2021-09-04 22:04] LABS: Neutrophils # 9.8 K/mcL (1.6-8.9)
[2021-09-04 22:07] LABS: Anisocytosis 1+ (Not Present); Hypochromasia Present (Not Present); Platelet Estimate Normal (Normal)
[2021-09-04 22:09] LABS: INR 1.4; Prothrombin Time 16.1 Seconds (9.4-12.1)
[2021-09-04 22:20] LABS: BUN/Creatinine Ratio 20 (6-26); Blood Urea Nitrogen 23 mg/dL (8-23); Calcium 7.7 mg/dL (8.6-10.3); Carbon Dioxide 23 mEq/L (23-29); Chloride 112 mEq/L (98-107); Glucose 133 mg/dL (70-105); Osmolality,Calculated 296 (280-300); Potassium 4.5 mEq/L (3.5-5.1); Sodium 140 mEq/L (136-145); eGFR For African Americans > 60 (> 60); eGFR For Non-African Americans > 60 (> 60)
[2021-09-04 22:22] LABS: Troponin I 0.03 ng/mL (< 0.04)
[2021-09-04 22:27] LABS: ABG Base Excess -5 mEq/L (-2 to 3); ABG HCO3 22 mEq/L (21-27); ABG Oxygen Saturation 95 % (95-98); ABG PCO2 46 mmHg (35-45); ABG PH 7.29 pH Units (7.32-7.45); ABG PO2 87 mmHg (85-104); ABG TCO2 23 mEq/L (20-26)
[2021-09-04] MEDS ORDERED: Piperacillin/Tazobactam 3.375 GM in 0.9 % Sodium Chloride Mini Bag 100 ML IVPB SCH (23:00)
[2021-09-05] MEDS ORDERED: Protamine Sulfate 50 MG/5 ML VIAL IVP ONE (00:28)
[2021-09-05] MEDS ORDERED: Iopamidol - 370 500 ML MLS IVP ONE (00:36)
[2021-09-05 01:13] VITALS: BP 143/88; PULSE 91; RESP 25; O2SAT 99
[2021-09-05 01:18] LABS: Bilirubin,Urine Negative (Negative); Blood,Urine Large (Negative); Clarity,Urine Slightly Cloudy (Clear); Glucose,Urine (UA) Normal (Normal); Ketones,Urine Negative (Negative); Leukocyte Esterase,Urine Small (Negative); Nitrite,Urine Negative (Negative); Protein,Urine Negative (Neg-Trace); Specific Gravity,Urine 1.015 (1.010-1.025); Urobilinogen,Urine Normal (Normal)
[2021-09-05 01:20] LABS: Color,Urine Yellow (Yellow)
[2021-09-05 01:21] LABS: Amorphous Sediment,Urine Few per hpf (None-Few); Bacteria,Urine Few per hpf (None-Few); Mucus,Urine Few per lpf (None-Few)
[2021-09-05] MEDS ORDERED: Apixaban 5 MG TABLET PO SCH (09:00)
[2021-09-12] MEDS ORDERED: Apixaban 5 MG TABLET PO SCH (09:00)
== END 2021-09-05 01:30 | disposition short-term general hospital (02) | DRG 871 ==
LOC: INPGRE 19:56
PROVIDERS: ADMIT Family Medicine; ATTEND Family Medicine